=== PATIENT | female | born 1960 | race Caucasian/White ===

== ENCOUNTER → 2021-03-09 08:06 | Outpatient (CLI) | payer OTHER, SELFPAY ==
[2021-03-09 10:24] LABS: COVID19 -Nasal RAPID Negative (Negative)
== END ==
PROVIDERS: PCP Physician Assistant Medical; Visit Provider Physician Assistant
DX: Z01.812 Encounter for preprocedural laboratory examination (principal)
CPT/HCPCS: 87635

== ENCOUNTER 2021-03-10 08:21 | Day surgery (SDC) | payer OTHER, SELFPAY ==
--- NOTE | 2021-03-10 | PATH_ITS ---
[facility] Accession Number: [id number] . 01 Material submitted: . splenic flexure - SPLENIC FLEXURE . 02 Diagnosis: Splenic Flexure, Biopsy: Tubular adenoma. MRV 03/13/2021 1452 Local . 02 Electronically signed: . Jamie Neri MD, PhD, Pathologist NPI- [id number] . 01 Gross description: . SPLENIC FLEXURE: Received in formalin is 1 fragment(s) of valle, soft tissue measuring 0.2 x 0.2 x 0.2 cm submitted entirely in 1 cassette(s) /SARAH 03/11/2021 0455 Local . 02 Pathologist provided ICD-10: D12.3 . 02 CPT . 276659 Performed at: 01 [facility] [address] [id number] MD Jerald Alejo MD Phone: [phone] Performed at: 02 [facility] [address] [place], [place] [id number] MD Juhi Reddy MD Phone: [phone]
[2021-03-10 08:38] VITALS: BMI 37.1
[2021-03-10 08:53] VITALS: BP 136/85; PULSE 91; RESP 17; TEMP 36.2; O2SAT 97
[2021-03-10] MEDS: LACTATED RINGERS 1,000 ML 42 ML IV (08:57)
--- NOTE | 2021-03-10 10:21 | PM.HP.1 ---
History of Present Illness History of Present Illness Date Patient Seen: 03/10/21 Time Patient Seen: 10:21 Chief complaint: DX COLONOSCOPY Narrative: Personal hx of colon polyps. Asymptomatic. Patient History Surgical History History of cholecystectomy Previous section Family & Social History Social History: household members none Tobacco & Substance use: Smoking Status Former smoker alcohol intake frequency a few times a month Substance Use Type does not use Meds Home Medications and Allergies Home Medications Medication Instructions Recorded Confirmed Type atorvastatin 20 mg tablet 20 mg PO DAILY 02/24/21 03/10/21 History Allergies Allergy/AdvReac Type Severity Reaction Status Date / Time morphine AdvReac Intermediate Itching Verified 03/10/21 08:35 Review of Systems Review of Systems ROS: Yes All systems reviewed with the patient and are negative except as otherwise documented Exam Vital Signs (past 8 hours): - 03/10/21 08:53 Temperature 97.1 F L Pulse Rate 91 H Respiratory Rate 17 Blood Pressure 136/85 Pulse Oximetry 97 Oxygen Delivery Method Room Air Const General: cooperative and comfortable Orientation: alert HENMT Head: normocephalic Ears: external ears normal Nose: external nose normal Face and sinus: normal facial exam Mouth: oral mucosae normal Eyes General: appearance normal, both eyes and all related structures Neck Neck: normal visual inspection Chest Chest: normal inspection of the chest Resp Effort & Inspection: normal respiratory effort Auscultation: clear to auscultation bilaterally Cardio Rate: regular rate Rhythm: regular rhythm Heart Sounds: no murmurs GI Inspection: normal to inspection Palpation: soft and No tender Auscultation: normal bowel sounds Skin General: no rashes or lesions noted and No jaundice Neuro General: patient alert and moves all extremities Cognition: normal cognition Speech: speech normal Extrem General: no pedal edema Psych Appearance: grossly normal Assessment & Plan Assessment & Plan narrative: Indicated for surveillance colonoscopy. Proceed with colonoscopy today.
--- NOTE | 2021-03-10 10:23 | PM.PREOP ---
Pre-operative Note COVID-19 COVID-19 status: Negative Result date/Date tested (Pos, Neg/Pending): 03/09/21 Interval Note History & Physical reviewed/Exam performed by Physician: Yes Changes to H&P: No ASA Class (for procedural sedation): II
[2021-03-10] MEDS: MIDAZOLAM 5 MG/5 ML VIAL IV (10:36)
[2021-03-10] MEDS: fentaNYL 250 MCG/5 ML INJ IV (10:36)
--- NOTE | 2021-03-10 10:50 | PM.OP.ENDO ---
Operative Date/Time/Diagnoses Date of procedure: 03/10/21 Time of procedure: 10:50 Pre-op diagnosis: colon polyps Post-op diagnosis: same Procedure & Clinicians Study performed: colonoscopy with cold forcep polypectomy Same procedure as scheduled: Yes Indications: Personal hx of colon polyps Surgeon: Carson Arana Procedure Notes SCOAP/Timeout: Done Procedure in detail: After the risks and benefits were explained, written and verbal informed consent was obtained. The patient was brought into the procedure room and placed into the left lateral decubitus position. Conscious sedation medication was applied as per nursing documentation. Digital rectal examination was accomplished. The scope was introduced into the patient and advanced under direct visualization to the cecum as identified by the appendiceal orifice and ileocecal valve. The scope was slowly withdrawn to carefully examine the mucosa for any defects or lesions. Comprehensive imaging was accomplished throughout the rectum including the dentate line. The colon was decompressed, the scope was then removed from the patient who tolerated the procedure well. fentanyl 100 versed 5mg bowel prep adequate Scope withdrawal time: 11min Sedation minutes: 20 Complications: none Impression: There was some mild diverticulosis noted in the sigmoid. There was a diminutive polyp located at the splenic flexure removed with cold forceps. The previously placed tattoo in the transverse colon was easily identified. I did not observe any recurrent polyps in this location or anywhere else throughout the colon for that matter. There were few small non-bleeding AVMs noted in the cecum. Endoscopic diagnosis 1. Diverticulosis 2. Colon polyp 3. Cecal AVMs Post-procedure Plan for aftercare: 1. Await histology 2. Repeat colonoscopy 5 years. Disposition: PACU
[2021-03-10 10:55] VITALS: BP 109/78; PULSE 69; RESP 24; TEMP 36.3; O2SAT 98
[2021-03-10 11:00] VITALS: BP 137/67; PULSE 72; RESP 17; O2SAT 98
[2021-03-10 11:05] VITALS: BP 123/69; PULSE 64; RESP 17; TEMP 36.5; O2SAT 100
== END 2021-03-10 11:30 | disposition home or self-care (01) ==
PROVIDERS: PCP Physician Assistant Medical; Referring Provider Internal Medicine Gastroenterology; Visit Provider Internal Medicine Gastroenterology
PROC: 0DJD8ZZ Inspection of Lower Intestinal Tract, Via Natural or Artificial Opening Endoscopic (ICD-10-PCS; CPT 45378; principal; 2021-03-10 09:30)
DX: Z12.11 Encounter for screening for malignant neoplasm of colon (principal); Z86.010 Personal history of colon polyps; K57.30 Diverticulosis of large intestine without perforation or abscess without bleeding; Q27.33 Arteriovenous malformation of digestive system vessel; D12.3 Benign neoplasm of transverse colon
CPT/HCPCS: 45380; J2250; J3010